=== PATIENT | female | born 1985 | race Caucasian/White ===

== ENCOUNTER 2016-07-02 13:03 | Inpatient (IN) | payer MEDICAID ==
[~2016-07-02] VITALS: Ht 154.9 cm; Wt 75.8 kg
[2016-07-02 14:00] VITALS: Ht 154.9 cm; Wt 75.8 kg
[2016-07-02 14:04] VITALS: BP 107/68; PULSE 73; RESP 20
[2016-07-02] MEDS ORDERED: PRENAT PO (14:09)
[2016-07-02] MEDS ORDERED: DEXTROSE 50% 50 ML SYRINGE IV PRN ×2 (16:00)
[2016-07-02] MEDS ORDERED: GLUCOSE GEL 15 GRAM TUBE PO PRN ×2 (16:00)
[2016-07-02] MEDS ORDERED: GLUCAGON 1 MG INJ IM PRN (16:00)
[2016-07-02] MEDS ORDERED: GLUCOSE GEL 15 GRAM TUBE BUCCAL PRN (16:00)
--- NOTE | 2016-07-02 16:53 | HP ---
Date/Time of Note Date/Time of Note DATE: 07/02/16 TIME: 16:31 OB - History Hx of Present Free Text/Dictation This is a 31 years old female 4 para 3 gestational diabetes with abnormal 3 hours glucose tolerance test second visit to my office today gestational age is at 8 weeks 4 days admitted to [facility] for evaluation and treatment for gestational diabetes perinatology and front services agent consult has been request . She has been seen in the [facility] office for the second time today on review of her laboratory work it was noted 1 allergy to and 3 hours GTT normal diagnosed with A2 diabetes no information regarding of her sugar condition prior to this Obstetric history 3 normal vaginal delivery years 1999-06-16 and 9 at [facility] Family history mother is diabetic Allergies denies allergy to any known medication Social habit denies a smoking or drinking Review of system within normal Physical examination 5 feet1, 169 pounds Temperature 98.4 pulse 70 respiration 18 blood pressure 109/75 Head ears nose and throat negative Neck supple no thyromegaly Lungs clear to P&A Heart normal sinus rhythm no murmur Abdomen flat no organomegaly Pelvic exam deferred Extremities no edema no varicosities Impression Intrauterine 8 weeks and 4 day complicated with diabetes Plan Hospital admission for treatment of diabetes Estimated Due Date: Feb 07, 2017 : 4 Para: 3 Care: None Ultrasounds: No ultrasounds Obstetrical Complications: Gestational Diabetes Past Family/Social History * Past Medical, Surgical, Family and Obstetric Histories reviewed from chart. RPR/VDRL: Negative GBS Status: Unknown HBsAG: Negative OB Admission Exam Vital Signs Vital Signs Vital Signs Date Time Temp Pulse Resp B/P Pulse Ox O2 Delivery O2 Flow Rate FiO2 07/02/16 14:04 99.3 73 20 107/68 Room Air Physical Exam Heart: Rhythm Normal Lungs: Clear, Equal Abdomen: WNL Extremities: Normal Reflexes: Normal Cervical Dilatation: None Effacement: 0% Membranes: Intact Heart Rate: 130's OB Assessment/Plan Reason for admission: other (Treatment for gestational diabetes) Plan: Other (Perinatology front services agent consult for the treatment of gestational diabetes) AMBER CARLTON MD July 02, 2016 16:48
[2016-07-02 16:59] LABS: ALBUMIN 4.2 g/dl (3.3-4.9); ALBUMIN/GLOBULIN RATIO 1.05; BILIRUBIN,INDIRECT 0.2 mg/dl (0-1.1); BILIRUBIN,TOTAL 0.2 mg/dl (0.2-1.3); CALCIUM 9.4 mg/dl (8.4-10.2); CREATININE 0.47 mg/dl (0.44-1.00); POTASSIUM 4.4 mmol/L (3.5-5.1); TOTAL PROTEIN 8.2 g/dl (6.1-8.1)
[2016-07-02] MEDS: ACETAMINOPHEN 325 MG TAB PO PRN (17:35)
[2016-07-02] MEDS: INSULIN ASPART [NOVOLOG] 3 ML PEN SC SCH (20:05)
[2016-07-02] MEDS ORDERED: INSULIN ASPART [NOVOLOG] 3 ML PEN SC SCH (20:05)
[2016-07-02] MEDS: ACCU-CHEK XX SCH (20:05)
[2016-07-03] MEDS: ACCU-CHEK XX SCH ×4 (07:30→20:31)
[2016-07-03] MEDS: INSULIN ASPART [NOVOLOG] 3 ML PEN SC SCH ×3 (10:00→20:05)
--- NOTE | 2016-07-03 14:21 | CONS ---
DATE OF ADMISSION: 07/02/2016 DATE OF CONSULTATION: 07/03/2016 HISTORY OF PRESENT ILLNESS: The patient is a 31-year-old who was admitted yesterday because of an e levated 3-hour glucose test. She is currently 8 weeks and 6 days. Upon admission to the hospital, hemoglobin A1c showed it to be 5.7% and her glucose levels are all within normal. RECOMMENDATIONS: Patient to be discharged home; however, she is to continue with her glucose levels . We can repeat the hemoglobin A1c in 4 weeks and if it is normal for gestational age, then we can reassess diabetes in ; however, until then I would like the patient to check her sugars 4 t imes a day, fasting and postprandials, and the patient can be discharged home, again, after the 24-h our urine for protein is over. Dictated By: JESSICA MARTINEZ/ANDIE Conf#: [id number] DID#: [id number]
[2016-07-03] MEDS: ACETAMINOPHEN 325 MG TAB PO PRN (14:47)
[2016-07-03 18:41] LABS: SCRET 0.47 mg/dl (0.44-1.00)
[2016-07-04] MEDS: ACCU-CHEK XX SCH ×2 (08:15→10:49)
[2016-07-04] MEDS: INSULIN ASPART [NOVOLOG] 3 ML PEN SC SCH (10:00)
[2016-07-04] MEDS: ACETAMINOPHEN 325 MG TAB PO PRN (15:51)
--- NOTE | 2016-07-04 18:33 | DS ---
Date/Time of Note Date/Time of Note DATE: 07/04/16 TIME: 18:30 Discharge Summary Admission/Discharge Info Admit Date/Time July 02, 2016 at 13:03 Discharge Date/Time July 04 at 1831 Final Diagnosis First trimester suspected gestational diabetes patient had abnormal 3 hours GTT Patient Condition: Good Consults Perinatology Procedures Workup to rule out gestational diabetes, hemoglobin A1c 5.724 hours urine protein within normal fasting blood sugar and 2 hours postprandial within normal Hx of Present Illness Workup for gestational diabetes Hospital Course Satisfactory Home Meds Reported Medications Multivit/Min/Fol Ac/Iron/Pren* ( S*) 1 Tab Tab, 1 TAB PO DAILY, TAB 07/02/16 Primary Care Provider Care Physician No Primary Time spent on discharge: < 30 minutes Pending Labs Laboratory Tests Test 07/03/16 19:43 07/04/16 07:56 07/04/16 10:40 07/04/16 15:46 Bedside Glucose 105mg/dL (70-220) 79mg/dL (70-220) 111mg/dL (70-220) 101mg/dL (70-220) AMBER CARLTON MD July 04, 2016 18:33
== END 2016-07-04 18:54 | disposition home or self-care (01) | DRG 781 ==
LOC: OBG 13:03
PROVIDERS: ADMIT Obstetrics & Gynecology; ATTEND Obstetrics & Gynecology
DX: O24.419 Gestational diabetes mellitus in pregnancy, unspecified control (principal); Z3A.08 8 weeks gestation of pregnancy
CPT/HCPCS: 80053; 82575; 82962; 83036; 84156; J1815